=== PATIENT | female | born 1995 | race Hispanic/Latino ===

== ENCOUNTER 2021-08-28 03:47 | Emergency (ER) | payer OTHER ==
--- OUTSIDE RECORDS SUMMARY | 2021-08-28 03:51 | XMS REPORT | Continuity of Care Document ---
:1995 Author Organization [facility] t Address [address] [place] [address] Care Team Providers Name Role Phone Piotr Crouch Attending Clinician Unavailable Dinesh Juarez Attending Clinician Unavailable Nilton Holley Admitting Clinician Unavailable Smiley Admitting Clinician Unavailable Payers Payer Name Policy Type Policy Number Effective Date Expiration Date S ource Problems This patient has no known problems. Allergies, Adverse Reactions, Alerts Allergy Allergy Status Severity Reaction(s) Onset Inactive Treating Comm ents Source Name Type Date Date Clinician No Known DA Active U [facility] Allerg 06-02 [facility] ([place], [place]) [facility] No Known DA Active U 2017-0 [facility] Allerg 06-02 [facility] Medications This patient has no known medications. Procedures Procedure Date / Time Performed Performing Clinician Valentina aguilar [id number] 2020-04-29 00:00:00 BALCA.01 [facility] [id number] 2020-04-29 00:00:00 BALCA.01 [facility] Encounters Start End Encounter Admission Attending Care Care Encounter Source Date/Time Date/Time Type Type Clinicians Facility Department ID 2020-11-16 Inpatient EWA Padgett [id number] [facility] 14:15:00 Piotr [id number] [facility] 2020-04-29 Inpatient MARILOU Juarez HCARG LD [id number] [facility] 21:55:00 [facility] [id number] [facility] 2020-04-28 Inpatient MARILOU Juarez [facility] LD [id number] [facility] 17:36:00 Dinesh [id number] [facility] 2020-04-26 Inpatient HCARG MACIE [id number] [facility] 00:04:00 [id number] [facility] Results Test Description Test Time Test Comments Results Result Comments Source SURGICAL 2020-11-18 13:12:00 Test Item Value Reference Range Interpretation Comme nts SURGICAL RUN (test DATE: 11/18/20 [facility] LIVE PAGE 1 RUN code = TIME: 1312 Specimen Inquiry RUN USER: INTERFACE SURG) JIMI ENT: ALEA FREIRE LOC: H.OR U #: [id number] AGE/SX: 25/F ROOM: RE11/16/20REG DR: Piotr Crouch Jr, MD : 95 BED : DIS: STATUS: DEP [facility] [place] [facility] TLOC: SPEC #: [id number] R ROUTER SETTER: 11/17/20 STATUS: JACOB GALINDO #: [id number] SOFIA: - SUBM DR: Piotr Crouch Jr, MD ENTERED: 11/17/20 SP TYPE: SPRAGUE RGICAL OTHR DR: Lamin Holley MD ORDERED: SURG/PATH GROSS GROSS DESCRIPTION: The specimen is received in formalin in a container labeled "ALEA FREIRE - GALLBLADDER". The specimen c onsists of a resected gallbladder measuring 6 x 2 x 1.5 cm. The serosa is yoon and shiny. Th e specimen is opened. The lumen contains scanty green bile and several lobulated yellowish stones with an average diameter of 0.2 cm. The mucosa is green-yellowish and velvety. Knockdown Man sections are submitted in one cassette. CODES: [id number] - GALLBLADDER,NOS KEYPUNCH OPERATOR IES TO: Piotr Crouch Jr, MD [address], [place] [id number] Lamin Rivera MD [address] [facility] [address] [place] [address] PROCEDURES: SURG/PATH GROSS (10/27 01/13-131) TISSUES: GALLBLADDER,NOS - GALLBLADDE R Surgery information Surgery date 11/16/20 Surgeon(s): PIOTR CROUCH Pre-Op Dx: CHOLECYSTITIS Post-Op Dx: SAME Signed SIGNATURE ON FILE Gerry Moreno 11/18/20 1312 END OF REPORT [id number] 13:12:00 Test Item Value Reference Range Interpretation Comments SURGICAL (test code = SURG) RUN DATE: 11/18/20 [facility] LIVE PAGE 1 RUN TIME: 1312 Specimen Inquiry RUN USER: INTERFACE PATIENT: ALEA FREIRE LOC: H.OR U #: [id number] AGE/SX: 25/F ROOM: RE11/16/20[facility] DR: Piotr Crouch Jr, MD : 95 BED: DIS: STATUS: GULSHAN [facility] [place] [facility] TLOC: SPEC #: [id number] RECD: 11/17/20 STATUS: JACOB GALINDO #: [id number] SOFIA: 11/16/20- SUBM DR: Piotr Crouch Jr, MD ENTERED: 11/17/20 SP TYPE: SURGICAL OTHR DR: Lamin Holley MD ORDERED: SURG/PATH GROSS GROSS DESCRIPTION: The specimen is received in formalin in a container labeled "ALEA FREIRE - GALLBLADDER". The specimen consists of a resected gallbladder measuring 6 x 2 x 1.5 cm. The serosa is yoon and shiny. The specimen is opened. The lumen contains scanty green bile and several lobulated yellowish stones with an average diameter of 0.2 cm. The mucosa is green-yellowish and velvety. Knockdown Man sections are submitted in one cassette. CODES: [id number] - GALLBLADDER,NOS COPIES TO: Piotr Crouch Jr, MD [address] [place] [address] Lamin Holley MD [address] [facility] [address] [place] [address] PROCEDURES: SURG/PATH GROSS (11/18/20-1309) TISSUES: GALLBLADDER,NOS - GALLBLADDER Surgery information Surgery date 11/16/20 Surgeon(s): PIOTR CROUCH Pre-Op Dx: CHOLECYSTITIS Post-Op Dx: SAME Signed SIGNATURE ON FILE Gerry Moreno A 11/18/20 1312 END OF REPORT COVID 19 Asymptomatic IH [id number] 15:16:00 Test Item Value Reference Interpretation Comments Range COVID 19 Presumed NEGATIVE Asymptomatic IH AG Negative SHADY COV ID-19 (test code = COVNONPUIAG) Results are for the identification of QXSI-UcK-8yvjyr ocapsid protein antigen . Antigen is generallydet ectable in upper respir atory specimens durin g the acutephase of i nfection. Positive result s indicate the pr esenceof viral antigens, but clinical correl ation with patienthis tory and other diagnosti c information is necessary todetermine inf ection status. Negativ e results should be treat ed as presumptive and confirmed with a molecula r assay, if necessary fo r patientmanageme nt. Negative result s do not rule out COVID- 19 andshould not b e used as the sole basis for treatment orpat ient management deci sions, including infec tion controldecision s. Negative result s should be considered i n thecontext of a patient's recen t exposures, hist ory and thepresence of clinical signs and sympt oms consistent with COVID-19. The Shady SARS Antigen MEI is only for use under the Fooda nd Drug Administration' s Emergency Use Authorization. COMPREHENSIVE METABOLIC [id number] 15:45:00 Test Item Value Reference Range Interpretation Comments SODIUM (test code = 135 mmol/L 136-145 L NA) POTASSIUM (test code = 3.7 mmol/L 3.5-5.1 N K) CHLORIDE (test code = 104 mmol/L 98-107 N CL) CARBON DIOXIDE (test 28 mmol/L 21-32 N code = CO2) GLUCOSE (test code = 81 mg/dL 70-100 N GLU) BLOOD UREA NITROGEN 12 mg/dL 7-18 N (test code = BUN) GLOMERULAR FILTRATION > 60.00 See_Comment Report ing units: RATE (test code = GFR) mL/mi n/1.73m\\S\\2 (Modified MDRD formula)REFEREN CE RANGE: > or = 6 0 ml/min/1.73M2IF PATIENT IS -GIULIA N, MULTIPLY REPORT ED RESULT BY1.21. [Automated mess age] The system The [employer] generated this result transmitted ref erence range: >=60. Th e reference range was not used to int erpret this result as normal/abnormal . CREATININE (test code 0.55 mg/dL 0.51-0.95 N = CREAT) TOTAL PROTEIN (test 8.2 g/dl 6.4-8.2 N code = PROT) ALBUMIN (test code = 4.2 g/dl 3.4-5.0 N ALB) CALCIUM (test code = 9.5 mg/dL 8.5-10.1 N CA) BILIRUBIN TOTAL (test 0.5 mg/dl 0.2-1.0 N code = BILT) SGOT/AST (test code = 18 U/L 15-37 N AST) SGPT/ALT (test code = 34 U/L 12-78 N ALT) ALKALINE PHOSPHATASE 59 U/L 50-136 N TOTAL (test code = ALKP) HCG [id number] 15:45:00 Test Item Value Reference Range Interpretation Comments HCG SERUM (test 1 mIU/ml 0-6 N Values for B -hCG generally code = HCG) peak during the first trimesterand de connor slowly throughout the remainder of thepregnancy. A sharply reduced or fall ing serum B-hCG levelmay indicate an abnormal pregna ncy, and additonal clini calevaluation and follow-up m ay be appropriate. H CG rangesduring no rmal , as r eported in the literature, are summarized below.......... .............. ............... .............. ........Approxi mate hCG A pproximate GestationalRang e mIU/mL[IU/L] Age ---- ------5 - 50 0.2 - 1 Week50 - 500 1 - 2 Snmlx775 - 5000 2 - 3 Vmthf342 - 10,000 3 - 4 Weeks10 00 - 50,000 4 - 5 Weeks10,000 - 100,000 5 - 6 Weeks15,000 - 200,000 6 - 8 Weeks10,000 - 100,000 2 - 3 Months COMPREHENSIVE METABOLIC [id number] 15:43:00 Test Item Value Reference Range Interpretation Comments SODIUM (test code = 135 mmol/L 136-145 L NA) POTASSIUM (test code = 3.7 mmol/L 3.5-5.1 N K) CHLORIDE (test code = 104 mmol/L 98-107 N CL) CARBON DIOXIDE (test 28 mmol/L 21-32 N code = CO2) GLUCOSE (test code = 81 mg/dL 70-100 N GLU) BLOOD UREA NITROGEN 12 mg/dL 7-18 N (test code = BUN) GLOMERULAR FILTRATION > 60.00 See_Comment Report ing units: RATE (test code = GFR) mL/mi n/1.73m\\S\\2 (Modified MDRD formula)REFEREN CE RANGE: > or = 6 0 ml/min/1.73M2IF PATIENT IS -GIULIA N, MULTIPLY REPORT ED RESULT BY1.21. [Automated mess age] The system The [employer] generated this result transmitted ref erence range: >=60. Th e reference range was not used to int erpret this result as normal/abnormal . CREATININE (test code 0.55 mg/dL 0.51-0.95 N = CREAT) TOTAL PROTEIN (test 8.2 g/dl 6.4-8.2 N code = PROT) ALBUMIN (test code = 4.2 g/dl 3.4-5.0 N ALB) CALCIUM (test code = 9.5 mg/dL 8.5-10.1 N CA) BILIRUBIN TOTAL (test 0.5 mg/dl 0.2-1.0 N code = BILT) SGOT/AST (test code = 18 U/L 15-37 N AST) SGPT/ALT (test code = 34 U/L 12-78 N ALT) ALKALINE PHOSPHATASE 59 U/L 50-136 N TOTAL (test code = ALKP) HCG [id number] 15:43:00 Test Item Value Reference Range Interpretation Comments HCG SERUM (test code = HCG) mIU/ml 0-6 COMPREHENSIVE METABOLIC [id number] 15:42:00 Test Item Value Reference Range Interpretation Comments SODIUM (test code = 135 mmol/L 136-145 L NA) POTASSIUM (test code = 3.7 mmol/L 3.5-5.1 N K) CHLORIDE (test code = 104 mmol/L 98-107 N CL) CARBON DIOXIDE (test 28 mmol/L 21-32 N code = CO2) GLUCOSE (test code = 81 mg/dL 70-100 N GLU) BLOOD UREA NITROGEN 12 mg/dL 7-18 N (test code = BUN) GLOMERULAR FILTRATION > 60.00 See_Comment Report ing units: RATE (test code = GFR) mL/mi n/1.73m\\S\\2 (Modified MDRD formula)REFEREN CE RANGE: > or = 6 0 ml/min/1.73M2IF PATIENT IS -GIULIA N, MULTIPLY REPORT ED RESULT BY10.15. [Automated mess age] The system The [employer] generated this result transmitted ref erence range: >=60. Th e reference range was not used to int erpret this result as normal/abnormal . CREATININE (test code 0.55 mg/dL 0.51-0.95 N = CREAT) TOTAL PROTEIN (test 8.2 g/dl 6.4-8.2 N code = PROT) ALBUMIN (test code = 4.2 g/dl 3.4-5.0 N ALB) CALCIUM (test code = 9.5 mg/dL 8.5-10.1 N CA) BILIRUBIN TOTAL (test 0.5 mg/dl 0.2-1.0 N code = BILT) SGOT/AST (test code = 18 U/L 15-37 N AST) SGPT/ALT (test code = 34 U/L 12-78 N ALT) ALKALINE PHOSPHATASE U/L 50-136 TOTAL (test code = ALKP) HCG [id number] 15:42:00 Test Item Value Reference Range Interpretation Comments HCG SERUM (test code = HCG) mIU/ml 0-6 COMPREHENSIVE METABOLIC [id number] 15:40:00 Test Item Value Reference Range Interpretation Comments SODIUM (test code = 135 mmol/L 136-145 L NA) POTASSIUM (test code = 3.7 mmol/L 3.5-5.1 N K) CHLORIDE (test code = 104 mmol/L 98-107 N CL) CARBON DIOXIDE (test 28 mmol/L 21-32 N code = CO2) GLUCOSE (test code = 81 mg/dL 70-100 N GLU) BLOOD UREA NITROGEN 12 mg/dL 7-18 N (test code = BUN) GLOMERULAR FILTRATION > 60.00 See_Comment Report ing units: RATE (test code = GFR) mL/mi n/1.73m\\S\\2 (Modified MDRD formula)REFEREN CE RANGE: > or = 6 0 ml/min/1.73M2IF PATIENT IS -GIULIA N, MULTIPLY REPORT ED RESULT BY1.21. [Automated mess age] The system The [employer] generated this result transmitted ref erence range: >=60. Th e reference range was not used to int erpret this result as normal/abnormal . CREATININE (test code 0.55 mg/dL 0.51-0.95 N = CREAT) TOTAL PROTEIN (test g/dl 6.4-8.2 code = PROT) ALBUMIN (test code = 4.2 g/dl 3.4-5.0 N ALB) CALCIUM (test code = 9.5 mg/dL 8.5-10.1 N CA) BILIRUBIN TOTAL (test mg/dl 0.2-1.0 code = BILT) SGOT/AST (test code = 18 U/L 15-37 N AST) SGPT/ALT (test code = 34 U/L 12-78 N ALT) ALKALINE PHOSPHATASE U/L 50-136 TOTAL (test code = ALKP) HCG [id number] 15:40:00 Test Item Value Reference Range Interpretation Comments HCG SERUM (test code = HCG) mIU/ml 0-6 COMPREHENSIVE METABOLIC [id number] 15:38:00 Test Item Value Reference Range Interpretation Comments SODIUM (test code = 135 mmol/L 136-145 L NA) POTASSIUM (test code = 3.7 mmol/L 3.5-5.1 N K) CHLORIDE (test code = 104 mmol/L 98-107 N CL) CARBON DIOXIDE (test 28 mmol/L 21-32 N code = CO2) GLUCOSE (test code = 81 mg/dL 70-100 N GLU) BLOOD UREA NITROGEN 12 mg/dL 7-18 N (test code = BUN) GLOMERULAR FILTRATION See_Comment [Auto mated message] RATE (test code = GFR) The s ystem which generated this result transmitted ref erence range: >=60. Th e reference range was not used to int erpret this result as normal/abnormal . CREATININE (test code mg/dL 0.51-0.95 = CREAT) TOTAL PROTEIN (test g/dl 6.4-8.2 code = PROT) ALBUMIN (test code = 4.2 g/dl 3.4-5.0 N ALB) CALCIUM (test code = 9.5 mg/dL 8.5-10.1 N CA) BILIRUBIN TOTAL (test mg/dl 0.2-1.0 code = BILT) SGOT/AST (test code = U/L 15-37 AST) SGPT/ALT (test code = U/L 12-78 ALT) ALKALINE PHOSPHATASE U/L 50-136 TOTAL (test code = ALKP) HCG [id number] 15:38:00 Test Item Value Reference Range Interpretation Comments HCG SERUM (test code = HCG) mIU/ml 0-6 HCG [id number] 15:37:00 Test Item Value Reference Range Interpretation Comments HCG SERUM (test code = HCG) mIU/ml 0-6 COMPREHENSIVE METABOLIC [id number] 15:37:00 Test Item Value Reference Range Interpretation Comments SODIUM (test code = 135 mmol/L 136-145 L NA) POTASSIUM (test code = 3.7 mmol/L 3.5-5.1 N K) CHLORIDE (test code = 104 mmol/L 98-107 N CL) CARBON DIOXIDE (test mmol/L 21-32 code = CO2) GLUCOSE (test code = 81 mg/dL 70-100 N GLU) BLOOD UREA NITROGEN mg/dL 7-18 (test code = BUN) GLOMERULAR FILTRATION See_Comment [Auto mated message] RATE (test code = GFR) The s ystem which generated this result transmitted ref erence range: >=60. Th e reference range was not used to int erpret this result as normal/abnormal . CREATININE (test code mg/dL 0.51-0.95 = CREAT) TOTAL PROTEIN (test g/dl 6.4-8.2 code = PROT) ALBUMIN (test code = g/dl 3.4-5.0 ALB) CALCIUM (test code = 9.5 mg/dL 8.5-10.1 N CA) BILIRUBIN TOTAL (test mg/dl 0.2-1.0 code = BILT) SGOT/AST (test code = U/L 15-37 AST) SGPT/ALT (test code = U/L 12-78 ALT) ALKALINE PHOSPHATASE U/L 50-136 TOTAL (test code = ALKP) COMPREHENSIVE METABOLIC [id number] 15:33:00 Test Item Value Reference Range Interpretation Comments SODIUM (test code = 135 mmol/L 136-145 L NA) POTASSIUM (test code = 3.7 mmol/L 3.5-5.1 N K) CHLORIDE (test code = 104 mmol/L 98-107 N CL) CARBON DIOXIDE (test mmol/L 21-32 code = CO2) GLUCOSE (test code = mg/dL 70-100 GLU) BLOOD UREA NITROGEN mg/dL 7-18 (test code = BUN) GLOMERULAR FILTRATION See_Comment [Auto mated message] RATE (test code = GFR) The s ystem which generated this result transmitted ref erence range: >=60. Th e reference range was not used to int erpret this result as normal/abnormal . CREATININE (test code mg/dL 0.51-0.95 = CREAT) TOTAL PROTEIN (test g/dl 6.4-8.2 code = PROT) ALBUMIN (test code = g/dl 3.4-5.0 ALB) CALCIUM (test code = mg/dL 8.5-10.1 CA) BILIRUBIN TOTAL (test mg/dl 0.2-1.0 code = BILT) SGOT/AST (test code = U/L 15-37 AST) SGPT/ALT (test code = U/L 12-78 ALT) ALKALINE PHOSPHATASE U/L 50-136 TOTAL (test code = ALKP) HCG [id number] 15:33:00 Test Item Value Reference Range Interpretation Comments HCG SERUM (test code = HCG) mIU/ml 0-6 CBC W/AUTO [id number] 15:28:00 Test Item Value Reference Range Interpretation Comments WHITE BLOOD CELL (test code = 7.1 X10(3) 4.5-11.0 N WBC) RED BLOOD CELL (test code = 4.72 X10(6) 4.2-5.4 N RBC) HEMOGLOBIN (test code = HGB) 13.1 g/dL 12.5-16.0 N HEMATOCRIT (test code = HCT) 41.0 % 37.0-47.0 N MEAN CELL VOLUME (test code = 86.9 fl 78-100 N MCV) MEAN CELL HGB (test code = MCH) 27.8 pg 26.0-34.0 N MEAN CELL HGB CONCETRATION 32.0 g/dl 30.0-37.0 N (test code = MCHC) RED CELL DISTRIBUTION WIDTH 12.6 % 11.5-14.5 N (test code = RDW) PLATELET COUNT (test code = 349 X10(3) 150-350 N PLT) MEAN PLATELET VOLUME (test code 10.4 fl 8.7-11.4 N = MPV) NEUTROPHIL % (test code = NT%) 59.7 % 36.0-66.0 N IMMATURE GRANULOCYTE % (test 0.3 % 0.0-2.0 N code = IG%) LYMPHOCYTE % (test code = LY%) 30.9 % 16.0-50.0 N MONOCYTE % (test code = MO%) 7.7 % 0.0-13.0 N EOSINOPHIL % (test code = EO%) 1.1 % 0.0-4.5 N BASOPHIL % (test code = BA%) 0.3 % 0.0-1.5 N NUCLEATED RBC % (test code = 0.0 % 0-0.2 N NRBC%) NEUTROPHIL # (test code = NT#) 4.21 X10(3) 1.70-7.70 N IMMATURE GRANULOCYTE # (test 0.02 X10(3)uL 0.00-0.03 N code = IG#) LYMPHOCYTE # (test code = LY#) 2.18 X10(3) 0.70-4.00 N MONOCYTE # (test code = MO#) 0.54 X10(3) 0.00-0.89 N EOSINOPHIL # (test code = EO#) 0.08 X10(3) 0.00-0.60 N BASOPHIL # (test code = BA#) 0.02 X10(3) 0.00-0.20 N NUCLEATED RBC # (test code = 0.00 K/mm3 0.0-0.1 N NRBC#) AG HEPATITIS B [id number] 08:32:00 Test Item Value Reference Range Interpretation Comments AG HEPATITIS B SURFACE NONREAC NONREAC The r esults were (test code = HBSAG) obtained using the [employer] XP HBsA g assay. AB [id number] 08:32:00 Test Item Value Reference Range Interpretation Comments AB TREPONEMA (test NONREACTIVE NONREACTIVE Treponema l screening code = TREPAB) for Syphilis------- ------ ----- HIV 1 2 COMBO AG/AB [id number] 08:32:00 Test Item Value Reference Range Interpretation Comments HIV 1 2 COMBO AG/AB NON REACT NON REACT A Non-r eactive result SCREEN (test code = does not exclude the [id number]) possibility joshua xposure to or infection wi th HIV. HIV antibodies and/or i22velegfy may be undetectable in some stages of the infectionand in some clinical condit ions.The results were ob tained using the Retro[employer] XP CHIV assay.For use i n the detection of HI V p24 antigen and ant ibodiesto HIV Type 1 and/ or HIV Type 2. AG HEPATITIS B [id number] 08:22:00 Test Item Value Reference Range Interpretation Comments AG HEPATITIS B SURFACE NONREAC NONREAC The r esults were (test code = HBSAG) obtained using the 5to1 XP HBsA g assay. AB [id number] 08:22:00 Test Item Value Reference Range Interpretation Comments AB TREPONEMA (test NONREACTIVE NONREACTIVE Treponema l screening code = TREPAB) for Syphilis------- ------ ----- HIV 1 2 COMBO AG/AB [id number] 08:22:00 Test Item Value Reference Range Interpretation Comments HIV 1 2 COMBO AG/AB SCREEN (test code = NON REACT [id number]) URINALYSIS W REFLEX [id number] 00:16:00 Test Item Value Reference Range Interpretation Comments UA COLOR (test code = COLU) YELLOW YELLOW UA APPEARANCE (test code = CLEAR CLEAR APPU) UA GLUCOSE DIPSTICK (test code NORMAL mg/dl NORMAL = DGLUU) UA BILIRUBIN DIPSTICK (test NEGATIVE mg/dl NEGATIVE code = BILU) UA KETONE DIPSTICK (test code NEGATIVE mg/dl NEGATIVE = KETU) UA SPECIFIC GRAVITY (test code 1.032 1.001-1.035 N = SGU) UA BLOOD DIPSTICK (test code = NEGATIVE /UL NEGATIVE LUZ MARINA) UA PH DIPSTICK (test code = 6.5 4.6-8.0 BOOKER) UA PROTEIN DIPSTICK (test code 30 mg/dl NEGATIVE A = PROU) UA UROBILINIOGEN DIPSTICK 2 mg/dl NORMAL (test code = URO) UA NITRITE DIPSTICK (test code NEGATIVE NEGATIVE = LEONOR) UA LEUKOCYTE ESTERASE DIPSTICK NEGATIVE /UL NEGATIVE (test code = LEUU) UA COMMENT (test code = COMU) RANDOM UA WBC (test code = WBCU) 0-2 #/hpf 0-5 UA RBC (test code = RBCU) 0-2 #/hpf 0-5 UA EPITHELIAL CELLS (test code 2+ /hpf NEG,FEW A = EPIU) UA BACTERIA (test code = BACU) FEW /hpf NEGATIVE A UA MUCUS (test code = MUCU) 4+ /hpf NEG,FEW A URINE SOURCE: RANDOM URINECBC W/AUTO [id number] 23:06:00 Test Item Value Reference Range Interpretation Comments WHITE BLOOD CELL (test code = 8.1 X10(3) 4.5-11.0 N WBC) RED BLOOD CELL (test code = 4.26 X10(6) 4.2-5.4 N RBC) HEMOGLOBIN (test code = HGB) 12.0 g/dL 12.5-16.0 L HEMATOCRIT (test code = HCT) 37.7 % 37.0-47.0 N MEAN CELL VOLUME (test code = 88.5 fl 78-100 N MCV) MEAN CELL HGB (test code = MCH) 28.2 pg 26.0-34.0 N MEAN CELL HGB CONCETRATION 31.8 g/dl 30.0-37.0 N (test code = MCHC) RED CELL DISTRIBUTION WIDTH 15.4 % 11.5-14.5 H (test code = RDW) PLATELET COUNT (test code = 219 X10(3) 150-350 N PLT) MEAN PLATELET VOLUME (test code 11.9 fl 8.7-11.4 H = MPV) NEUTROPHIL % (test code = NT%) 73.8 % 36.0-66.0 H IMMATURE GRANULOCYTE % (test 0.2 % 0.0-2.0 N code = IG%) LYMPHOCYTE % (test code = LY%) 19.6 % 16.0-50.0 N MONOCYTE % (test code = MO%) 5.7 % 0.0-13.0 N EOSINOPHIL % (test code = EO%) 0.5 % 0.0-4.5 N BASOPHIL % (test code = BA%) 0.2 % 0.0-1.5 N NUCLEATED RBC % (test code = 0.0 % 0-0.2 N NRBC%) NEUTROPHIL # (test code = NT#) 5.98 X10(3) 1.70-7.70 N IMMATURE GRANULOCYTE # (test 0.02 X10(3)uL 0.00-0.03 N code = IG#) LYMPHOCYTE # (test code = LY#) 1.59 X10(3) 0.70-4.00 N MONOCYTE # (test code = MO#) 0.46 X10(3) 0.00-0.89 N EOSINOPHIL # (test code = EO#) 0.04 X10(3) 0.00-0.60 N BASOPHIL # (test code = BA#) 0.02 X10(3) 0.00-0.20 N NUCLEATED RBC # (test code = 0.00 K/mm3 0.0-0.1 N NRBC#) CBC W/AUTO [id number] 23:06:00 Test Item Value Reference Range Interpretation Comments WHITE BLOOD CELL (test code = 8.1 X10(3) 4.5-11.0 N WBC) RED BLOOD CELL (test code = 4.26 X10(6) 4.2-5.4 N RBC) HEMOGLOBIN (test code = HGB) 12.0 g/dL 12.5-16.0 L HEMATOCRIT (test code = HCT) 37.7 % 37.0-47.0 N MEAN CELL VOLUME (test code = 88.5 fl 78-100 N MCV) MEAN CELL HGB (test code = MCH) 28.2 pg 26.0-34.0 N MEAN CELL HGB CONCETRATION 31.8 g/dl 30.0-37.0 N (test code = MCHC) RED CELL DISTRIBUTION WIDTH 15.4 % 11.5-14.5 H (test code = RDW) PLATELET COUNT (test code = 219 X10(3) 150-350 N PLT) MEAN PLATELET VOLUME (test code 11.9 fl 8.7-11.4 H = MPV) NEUTROPHIL % (test code = NT%) 73.8 % 36.0-66.0 H IMMATURE GRANULOCYTE % (test 0.2 % 0.0-2.0 N code = IG%) LYMPHOCYTE % (test code = LY%) 19.6 % 16.0-50.0 N MONOCYTE % (test code = MO%) 5.7 % 0.0-13.0 N EOSINOPHIL % (test code = EO%) 0.5 % 0.0-4.5 N BASOPHIL % (test code = BA%) 0.2 % 0.0-1.5 N NUCLEATED RBC % (test code = 0.0 % 0-0.2 N NRBC%) NEUTROPHIL # (test code = NT#) 5.98 X10(3) 1.70-7.70 N IMMATURE GRANULOCYTE # (test 0.02 X10(3)uL 0.00-0.03 N code = IG#) LYMPHOCYTE # (test code = LY#) 1.59 X10(3) 0.70-4.00 N MONOCYTE # (test code = MO#) 0.46 X10(3) 0.00-0.89 N EOSINOPHIL # (test code = EO#) 0.04 X10(3) 0.00-0.60 N BASOPHIL # (test code = BA#) 0.02 X10(3) 0.00-0.20 N NUCLEATED RBC # (test code = 0.00 K/mm3 0.0-0.1 N NRBC#) COVID 19 Asymptomatic IH [id number] 17:21:00 Test Item Value Reference Interpretation Comments Range COVID 19 Presumed NEGATIVE Asymptomatic IH AG Negative SHADY COV ID-19 (test code = COVNONPUIAG) Results are for the identification of [id number] ocapsid protein antigen . Antigen is generallydet ectable in upper respir atory specimens durin g the acutephase of i nfection. Positive result s indicate the pr esenceof viral antigens, but clinical correl ation with patienthis tory and other diagnosti c information is necessary todetermine inf ection status. Negativ e results should be treat ed as presumptive and confirmed with a molecula r assay, if necessary fo r patientmanageme nt. Negative result s do not rule out COVID- 19 andshould not b e used as the sole basis for treatment orpat ient management deci sions, including infec tion controldecision s. Negative result s should be considered i n thecontext of a patient's recen t exposures, hist ory and thepresence of clinical signs and sympt oms consistent with COVID-19. The Shady SARS Antigen MEI is only for use under the Fooda nd Drug Administration' s Emergency Use Authorization.
[2021-08-28] MEDS ORDERED: NA CHLORIDE 0.9% 1,000 ML ONE ×2 (04:10→04:43)
[2021-08-28 04:23] LABS: Urine Blood 2+ (Negative); Urine Glucose Negative (Negative); Urine Protein Negative (Negative); Urine Specific Gravity 1.025 (1.005-1.030)
[2021-08-28 04:36] LABS: Urine Specific Gravity/Preg 1.025 (1.005-1.030)
[2021-08-28 04:36] LABS: Absolute Lymphocytes (CBC) 0.3 K/uL (0.7-4.9); Basophils % 0.1 % (0-1.3); Hematocrit 43.3 % (36.0-45.0); Lymphocytes % 2.9 % (15.3-44.8); MPV 7.9 fL (7.6-11.3); RBC Red Blood Cell Count 5.12 M/uL (3.86-4.86)
[2021-08-28] MEDS ORDERED: ONDANSETRON 4 MG/2 ML VIAL ONE (04:42)
[2021-08-28] MEDS ORDERED: MORPHINE 2 MG/ML SYR ONE (04:42)
[2021-08-28 04:54] LABS: Bilirubin Direct 0.2 mg/dL (0-0.2); Bilirubin Total 0.7 mg/dL (0.2-1.0); Potassium 3.9 mmol/L (3.5-5.1); Protein, Total 8.8 g/dL (6.4-8.2)
[2021-08-28] MEDS ORDERED: CIPROFLOXACIN 400mg IV 400 MG/200 ML BAG IV ONE (04:54)
--- NOTE | 2021-08-28 06:15 | ER ---
Nurse's Notes [facility] Name: Domonique Reyna Age: 25 yrs Sex: Female : 1995 Arrival Date: 08/28/2021 Time: 03:53 Bed 6 Private MD: Diagnosis: Vomiting;Diarrhea, unspecified;Abdominal tenderness;UTI/ Urinary tract infection, site not specified;Noninfective gastroenteritis and colitis, unspecified-Proctitis Presentation: 08/28 04:04 Chief complaint: Patient states: she started vomiting and having diarrhea last night bb around midnight and is having abdominal pain and a headache. Coronavirus screen: diarrhea, headache, vomiting. Client presents with at least one sign or symptom that may indicate coronavirus-19. Standard/surgical mask placed on the client. Ebola Screen: No symptoms or risks identified at this time. Initial Sepsis Screen: Does the patient meet any 2 criteria? No. Patient's initial sepsis screen is negative. Does the patient have a suspected source of infection? No. Patient's initial sepsis screen is negative. Risk Assessment: Do you want to hurt yourself or someone else? Patient reports no desire to harm self or others. Onset of symptoms was August 28, 2021. 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 - Social history:: Smoking status: unknown. - Family history:: not pertinent. Screenin:30 Abuse screen: Denies threats or abuse. Nutritional screening: No deficits noted. as6 Tuberculosis screening: No symptoms or risk factors identified. Fall Risk None identified. Assessment: 04:13 General: Appears in no apparent distress. uncomfortable, Behavior is calm, cooperative. as6 Pain: Complains of pain in right lower quadrant and left lower quadrant Pain radiates to anterior aspect of right lateral abdomen. Neuro: Level of Consciousness is awake, alert, obeys commands, Oriented to person, place, time, situation. Neuro: Reports headache. Cardiovascular: Capillary refill < 3 seconds Patient's skin is warm and dry. Respiratory: Airway is patent Trachea midline Respiratory effort is even, unlabored, Respiratory pattern is regular, symmetrical. GI: Reports lower abdominal pain, diarrhea, nausea, vomiting. Derm: Skin is intact, is healthy with good turgor. Vital Signs: 04:04 BP 104 / 90; Pulse 121; Resp 18 S; Temp 99.5(O); Pulse Ox 95% on R/A; Weight 64.41 kg bb (R); Height 5 ft. 2 in. (157.48 cm) (R); Pain 5/10; 05:38 BP 109 / 59; Pulse 86; Resp 16 S; Pulse Ox 100% on R/A; as6 06:20 BP 109 / 72; Pulse 90; Resp 18 S; Pulse Ox 100% on R/A; as6 04:04 Body Mass Index 25.97 (64.41 kg, 157.48 cm) ED Course: 03:53 Patient arrived in ED. 03:59 Rogelio White, RN is Primary Nurse. as6 04:06 Triage completed. bb 04:06 Arm band placed on Patient placed in an exam room, on a stretcher, on pulse oximetry. bb Family accompanied patient. 04:29 Inserted saline lock: 18 gauge in left antecubital area, using aseptic technique. Blood as6 collected. 04:30 Bed in low position. Call light in reach. Side rails up X 1. Pulse ox on. NIBP on. as6 04:31 Juan Mendieta MD is Attending Physician. chris 05:26 CT Abd/Pelvis - IV Contrast Only In Process Unspecified. EDMS 06:18 Arpita Ybarra MD is Referral Physician. chris 06:30 No provider procedures requiring assistance completed. IV discontinued, intact, as6 bleeding controlled, No redness/swelling at site. Pressure dressing applied. Administered Medications: 04:29 Drug: NS 0.9% 1000 ml Route: IV; Rate: 1000 ml; Site: left antecubital; as6 06:28 Follow up: IV Status: Completed infusion; IV Intake: 1000ml as6 04:50 Drug: morphine 2 mg Route: IVP; Site: left antecubital; as6 06:28 Follow up: Response: No adverse reaction; RASS: Alert and Calm (0) as6 04:50 Drug: Zofran (Ondansetron) 4 mg Route: IVP; Site: left antecubital; as6 06:28 Follow up: Response: No adverse reaction as6 04:50 Drug: NS 0.9% 1000 ml Route: IV; Rate: 1 bolus; Site: left antecubital; as6 06:29 Follow up: Response: No adverse reaction; IV Status: Completed infusion; IV Intake: as6 1000ml 05:05 Drug: Cipro (ciprofloxacin) 400 mg Volume: 200 ml; Route: IVPB; Infused Over: 60 mins; as6 Site: left antecubital; 06:29 Follow up: Response: No adverse reaction; IV Status: Completed infusion; IV Intake: as6 200ml 06:21 Drug: Flagyl (metroNIDAZOLE) 500 mg Route: PO; as6 06:29 Follow up: Response: No adverse reaction as6 Intake: 06:28 IV: 1000ml; Total: 1000ml. as6 06:29 IV: 1000ml; Total: 2000ml. as6 06:29 IV: 200ml; Total: 2200ml. as6 Outcome: 06:15 Discharge ordered by MD. perez 06:30 Discharged to home ambulatory, with significant other. as6 06:30 Condition: stable 06:30 Discharge instructions given to patient, Instructed on discharge instructions, follow up and referral plans. medication usage, Demonstrated understanding of instructions, follow-up care, medications, Prescriptions given X 5 06:30 Patient left the ED. as6 Signatures: Dispatcher [employer] EDJuan Tracey MD MD cha Ballard, Brenda, Diana Hunter RN, Ashby, RN RN as6
--- NOTE | 2021-08-28 06:16 | EDPHYS ---
Physician Documentation [facility] Name: Domonique Reyna Age: 25 yrs Sex: Female : 1995 Arrival Date: 08/28/2021 Time: 03:53 Bed 6 Private MD: NAHID Physician Juan Mendieta HPI: 08/28 04:50 This 25 yrs old Female presents to ER via Ambulatory with complaints of hcris Nausea/Vomiting/Diarrhea. 04:50 The patient presents to the emergency department with nausea, vomiting, 6 times since chris the onset of symptoms, described as bilious. Onset: The symptoms/episode began/occurred yesterday. Possible causes: unknown. The symptoms are aggravated by movement. Associated signs and symptoms: The patient has no apparent associated signs or symptoms. Severity of symptoms: At their worst the symptoms were moderate in the emergency department the symptoms are unchanged. The patient has not experienced similar symptoms in the past. 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 - Social history:: Smoking status: unknown. - Family history:: not pertinent. ROS: 04:50 Constitutional: Negative for fever, chills, and weight loss, Eyes: Negative for injury, chris pain, redness, and discharge, ENT: Negative for injury, pain, and discharge, Neck: Negative for injury, pain, and swelling, Cardiovascular: Negative for chest pain, palpitations, and edema, Respiratory: Negative for shortness of breath, cough, wheezing, and pleuritic chest pain, Back: Negative for injury and pain, : Negative for injury, bleeding, discharge, and swelling, MS/Extremity: Negative for injury and deformity, Skin: Negative for injury, rash, and discoloration, Neuro: Negative for headache, weakness, numbness, tingling, and seizure, Psych: Negative for depression, anxiety, suicide ideation, homicidal ideation, and hallucinations, Allergy/Immunology: Negative for hives, rash, and allergies, Endocrine: Negative for neck swelling, polydipsia, polyuria, polyphagia, and marked weight changes, Hematologic/Lymphatic: Negative for swollen nodes, abnormal bleeding, and unusual bruising. 04:50 Abdomen/GI: Positive for abdominal pain, nausea and vomiting, diarrhea, of the right upper quadrant, left upper quadrant, right lower quadrant and left lower quadrant. Exam: 04:50 Constitutional: This is a well developed, well nourished patient who is awake, alert, chris and in no acute distress. Head/Face: Normocephalic, atraumatic. Eyes: Pupils equal round and reactive to light, extra-ocular motions intact. Lids and lashes normal. Conjunctiva and sclera are non-icteric and not injected. Cornea within normal limits. Periorbital areas with no swelling, redness, or edema. ENT: Nares patent. No nasal discharge, no septal abnormalities noted. Tympanic membranes are normal and external auditory canals are clear. Oropharynx with no redness, swelling, or masses, exudates, or evidence of obstruction, uvula midline. Mucous membranes moist. Neck: Trachea midline, no thyromegaly or masses palpated, and no cervical lymphadenopathy. Supple, full range of motion without nuchal rigidity, or vertebral point tenderness. No Meningismus. Chest/axilla: Normal chest wall appearance and motion. Nontender with no deformity. No lesions are appreciated. Cardiovascular: Regular rate and rhythm with a normal S1 and S2. No gallops, murmurs, or rubs. Normal PMI, no JVD. No pulse deficits. Respiratory: Lungs have equal breath sounds bilaterally, clear to auscultation and percussion. No rales, rhonchi or wheezes noted. No increased work of breathing, no retractions or nasal flaring. Back: No spinal tenderness. No costovertebral tenderness. Full range of motion. Female : Normal external genitalia. Skin: Warm, dry with normal turgor. Normal color with no rashes, no lesions, and no evidence of cellulitis. MS/ Extremity: Pulses equal, no cyanosis. Neurovascular intact. Full, normal range of motion. Neuro: Awake and alert, GCS 15, oriented to person, place, time, and situation. Cranial nerves II-XII grossly intact. Motor strength 5/5 in all extremities. Sensory grossly intact. Cerebellar exam normal. Normal gait. 04:50 Abdomen/GI: Inspection: abdomen appears normal, Bowel sounds: normal, Palpation: moderate abdominal tenderness, in all quadrants, Liver: no appreciated palpable abnormalities, Hernia: not appreciated. Vital Signs: 04:04 BP 104 / 90; Pulse 121; Resp 18 S; Temp 99.5(O); Pulse Ox 95% on R/A; Weight 64.41 kg bb (R); Height 5 ft. 2 in. (157.48 cm) (R); Pain 5/10; 05:38 BP 109 / 59; Pulse 86; Resp 16 S; Pulse Ox 100% on R/A; as6 06:20 BP 109 / 72; Pulse 90; Resp 18 S; Pulse Ox 100% on R/A; as6 04:04 Body Mass Index 25.97 (64.41 kg, 157.48 cm) MDM: 04:33 Patient medically screened. chris 04:53 Differential diagnosis: Nonspecific abd pain, gastritis, cholecystitis, pancreatitis, chris diverticulitis, viral gastroenteritis, gastroenteritis. Data reviewed: vital signs, nurses notes, lab test result(s), radiologic studies, CT scan. Data interpreted: quality assurance monitor body: rate is 121 beats/min, rhythm is regular, Pulse oximetry: on room air is 121 %. Counseling: I had a detailed discussion with the patient and/or guardian regarding: the historical points, exam findings, and any diagnostic results supporting the discharge/admit diagnosis, lab results, radiology results, the need for outpatient follow up, for definitive care, a family practitioner. 08/28 04:09 Order name: Basic Metabolic Panel 08/28 04:09 Order name: CBC with Diff 08/28 04:09 Order name: Hepatic Function 08/28 04:09 Order name: Lipase 08/28 04:10 Order name: Basic Metabolic Panel; Complete Time: 05:32 EDMS 08/28 04:10 Order name: CBC with Automated Diff; Complete Time: 04:47 EDMS 08/28 04:10 Order name: Liver (Hepatic) Function; Complete Time: 05:32 EDMS 08/28 04:10 Order name: Lipase; Complete Time: 05:32 EDMS 08/28 04:23 Order name: Urine Dipstick-Ancillary; Complete Time: 04:37 EDMS 08/28 04:26 Order name: Urine --Ancillary (enter results) 2 08/28 04:26 Order name: Urine --Ancillary; Complete Time: 04:37 EDMS 08/28 04:48 Order name: CT Abd/Pelvis - IV Contrast Only chris 08/28 04:09 Order name: IV Saline Lock; Complete Time: 04:29 bb 08/28 04:09 Order name: Labs collected and sent; Complete Time: 04:29 bb Administered Medications: 04:29 Drug: NS 0.9% 1000 ml Route: IV; Rate: 1000 ml; Site: left antecubital; as6 06:28 Follow up: IV Status: Completed infusion; IV Intake: 1000ml as6 04:50 Drug: morphine 2 mg Route: IVP; Site: left antecubital; as6 06:28 Follow up: Response: No adverse reaction; RASS: Alert and Calm (0) as6 04:50 Drug: Zofran (Ondansetron) 4 mg Route: IVP; Site: left antecubital; as6 06:28 Follow up: Response: No adverse reaction as6 04:50 Drug: NS 0.9% 1000 ml Route: IV; Rate: 1 bolus; Site: left antecubital; as6 06:29 Follow up: Response: No adverse reaction; IV Status: Completed infusion; IV Intake: as6 1000ml 05:05 Drug: Cipro (ciprofloxacin) 400 mg Volume: 200 ml; Route: IVPB; Infused Over: 60 mins; as6 Site: left antecubital; 06:29 Follow up: Response: No adverse reaction; IV Status: Completed infusion; IV Intake: as6 200ml 06:21 Drug: Flagyl (metroNIDAZOLE) 500 mg Route: PO; as6 06:29 Follow up: Response: No adverse reaction as6 Disposition Summary: 08/28/21 06:15 Discharge Ordered Location: Home chris Problem: new chris Symptoms: have improved chris Condition: Stable chris Diagnosis - Vomiting chris - Diarrhea, unspecified chris - Abdominal tenderness chris - UTI/ Urinary tract infection, site not specified chris - Noninfective gastroenteritis and colitis, unspecified - Proctitis(08/28/21 06:18) chris Followup: chris - With: Private Physician - When: 2 - 3 days - Reason: Recheck today's complaints, Continuance of care, Re-evaluation by your physician Followup: chris - With: Arpita Ybarra MD - When: 2 - 3 days - Reason: Recheck today's complaints, Re-evaluation by your physician Discharge Instructions: - Discharge Summary Sheet chris - Food Choices to Help Relieve Diarrhea, Adult chris - Diarrhea, Adult chris - Nausea and Vomiting, Adult chris - Urinary Tract Infection, Adult chris - Viral Gastroenteritis, Adult chris - Nausea and Vomiting, Adult, [id number] chris - Urinary Tract Infection, Adult, [id number] chris - Diarrhea, Adult, [id number] chris - Proctitis [facility] Forms: - Medication Reconciliation Form [facility] - Thank You Letter [facility] - Antibiotic Education [facility] - Prescription Opioid Use [facility] Prescriptions: - Pepcid 20 mg Oral Tablet - take 1 tablet by ORAL route every 12 hours for 7 days; 30 tablet; Refills: 0, [facility] Product Selection Permitted - Zofran 4 mg Oral Tablet - take 1 tablet by ORAL route every 12 hours As needed; 20 tablet; Refills: 0, [facility] Product Selection Permitted - Cipro 500 mg Oral Tablet - take 1 tablet by ORAL route every 12 hours for 5 days; 10 tablet; Refills: 0, [facility] Product Selection Permitted - Flagyl 500 mg Oral Tablet - take 1 tablet by ORAL route every 8 hours for 7 days; 21 tablet; Refills: 0, [facility] Product Selection Permitted - dicyclomine 20 mg Oral Tablet - take 1 tablet by ORAL route 4 times per day; 28 tablet; Refills: 0, Product [facility] Selection Permitted Signatures: Dispatcher [employer] Juan Mayen MD MD cha Ballard, Brenda, RN RN Rogelio Parrish RN RN as6 Corrections: (The following items were deleted from the chart) 06:18 06:15 Noninfective gastroenteritis and colitis, unspecified [facility]
[2021-08-28] MEDS ORDERED: metroNIDAZOLE 500 MG TABLET ONE (06:17)
[2021-08-28 06:40] VITALS: TEMP 99.5
[2021-08-28 06:41] VITALS: O2SAT 100
[2021-08-28 06:43] VITALS: BP 109/72
--- NOTE | 2021-08-29 11:21 | RAD REPORT ---
EXAM DESCRIPTION: CT - Abdomen Pelvis W Contrast - 08/28/2021 6:28 am CLINICAL HISTORY: The patient is 25 years years old, Female; ABD PAIN TECHNIQUE: Axial computed tomography images of the abdomen with intravenous contrast. Sagittal and coronal reformatted images were created and reviewed. This CT exam was performed using one or more of the following dose reduction techniques: automated exposure control, adjustment of the mA and/o r kV according to patient size, and/or use of iterative reconstruction technique. COMPARISON: No relevant prior studies available. FINDINGS: LUNG BASES: Unremarkable. No mass. No consolidation. No pleural effusions or pneumot horaces. HEART: The visualized heart and pericardium are normal. ABDOMEN: LIVER: There is site dilatation of the common hepatic duct up to 0.8 cm. The liver is normal in size and configuration and without focal defects with the exception of a small region of hypodensity adjacent to the falciform ligament, probably focal fatty infiltration. GALLBLADDER AND BILE DUCTS: The gallbladder is not identified and may be surgically absent although no surgical clips are noted in the gallbladder fossa. PANCREAS: Unremarkable. No ductal dilatation, inflammatory changes or mass. SPLEEN: Unremarkable. No splenomegaly or focal defects. ADRENALS: Unremarkable. No mass or calcification. KIDNEYS AND URETERS: There are no acute findings in the kidneys. There is no evidence of solid mass , hydronephrosis or radiopaque nonobstructive intrarenal calculi. STOMACH AND BOWEL: There is mural thickening in the duodenum and distal ileum up to 0.4 cm and 0.3 cm, respectively, as well as in portions of the distal descending colon, sigmoid colon and rectum. Th ere is also increased fluid in the small bowel also consistent with hypersecretion. Mural thickening in the distal rectum with adjacent reticulation is also concerning for severe procti tis. The stomach is distended with fluid. Fluid-filled colon and rectum also suggest hypersecretion or poo r colonic water resorption as may occur with nonspecific gastroenteritis/enteritis and/or colitis. PELVIS: APPENDIX: The appendix is not identified with surgical clips along the tip of the cecum suggesting previous appendectomy. BLADDER: Unremarkable, allowing for the degree of distention. There is no evidence of cystolithiasi s or bladder mass. REPRODUCTIVE: The uterus and adnexa are unremarkable. ABDOMEN and PELVIS: INTRAPERITONEAL SPACE: There is no evidence of free air. BONES/JOINTS: There is no evidence of acute fracture, osseous destruction or osteoblastic changes. There is a slight levoconvex lumbar curve. Mild primary osteoarthritis in the hip joints bilaterally with acetabular marginal osteophytosis and symmetric mild to moderate joint space loss. SOFT TISSUES: Unremarkable. VASCULATURE: Unremarkable. No abdominal aortic aneurysm. LYMPH NODES: Unremarkable. There is no evidence of mesenteric, retroperitoneal, pelvic or inguin al adenopathy. IMPRESSION: 1. Nonspecific gastroenteritis/enteritis and colitis. 2. Mural thickening in the distal rectum with adjacent reticulation is also concerning for severe p roctitis. 3. The gallbladder is not identified and may be surgically absent although no surgical clips are no tino in the gallbladder fossa. Correlate with surgical history. 4. Extrahepatic biliary ductal dilatation may reflect expected sequela of cholecystectomy with a bi liary reservoir effect. A distal common bile duct obstruction, as may occur with choledocholithiasis or benign or malignant stricture, is a less likely consideration but warrants correlation with liver function tests and MRCP or ERCP if indicated. Electronically signed by: Linsey Barraza MD 08/28/2021 5:56 AM ANESTHESIOLOGY TECHNOLOGIST Due to temporary technical issues with the PACS/Fluency reporting system, reports are being signed by the in house radiologists without review as a courtesy to insure prompt reporting. The interpreting radiologist is fully responsible for the content of the report.
== END 2021-08-28 06:30 | disposition home or self-care (01) ==
LOC: ER 03:47
DX: N39.0 Urinary tract infection, site not specified (principal); K52.9 Noninfective gastroenteritis and colitis, unspecified; K62.89 Other specified diseases of anus and rectum
CPT/HCPCS: 96365; 96361; 85025; 80048; 36415; 81025; 80076; 81003; 83690; 74177; 96375; 99284; Q9967; J2270; J7030 ×2; J2405; J0744

== ENCOUNTER 2022-02-07 15:58 | Emergency (ER) | payer OTHER ==
--- OUTSIDE RECORDS SUMMARY | 2022-02-07 16:02 | XMS REPORT | Continuity of Care Document ---
:1995 Author Organization [facility] t Address [address] [place] [address] Care Team Providers Name Role Phone Piotr [...] Date Clinician No Known DA Active U 2017-0 [facility] Allerg 06-02 [facility] No Known DA Active U 2017-0 [facility] Allerg 06-02 [facility] Medications This patient has no known medications. Procedures Procedure Date / Time Performed Performing Clinician Valentina aguilar [id number] 2020-04-29 00:00:[address] [facility] [id number] 2020-04-29 00:00:[address] [facility] Encounters Start End Encounter Admission Attending Care Care Encounter Source Date/Time Date/Time Type Type Clinicians Facility Department ID 2020-11-16 Inpatient EWA Padgett [id number] [facility] 14:15:[id number] [facility] 2020-04-29 Inpatient MARILOU Juarez HCARG LD [id number] [facility] 21:55:00 [facility] [id number] [facility] 2020-04-28 Inpatient MARILOU Juarez HCARG LD [id number] [facility] 17:36:00 Dinesh [id number] [facility] 2020-04-26 Inpatient HCARG MCAIE [id number] [facility] 00:04:[id number] [facility] Results Test Description Test Time Test Comments Results Result Comments Source SURGICAL 2020-11-18 13:12:00 Test Item Value Reference Range Interpretation Comme nts SURGICAL RUN (test DATE: 11/18/20 [facility] LAB LIVE PAGE 1 RUN code = TIME: 1312 Specimen Inquiry RUN USER: INTERFACE SURG) JIMI ENT: ALEA FREIRE LOC: H.OR U #: [id number] AGE/SX: 25/F ROOM: RE11/16/20REG DR: Piotr Crouch Jr, MD : 95 BED : DIS: STATUS: DEP [facility] TLOC: SPEC #: [id number] R TOOLROOM HELPER: 11/17/20 STATUS: JACOB GALINDO #: [id number] SOFIA: - SUBM DR: Piotr Crouch Jr, MD ENTERED: 11/17/20 SP TYPE: SPRAGUE RGICAL OT DR: Lamin Holley MD ORDERED: SURG/PATH GROSS [...] cm. The mucosa is green-yellowish and velvety. Physician'S Assistant sections are submitted in one cassette. CODES: [id number] - GALLBLADDER,NOS BUSINESS SYSTEMS CONSULTANT IES TO: Piotr Crouch Jr, MD [address] [place], [place] [address] Lamin Rivera MD [address] [facility] [address] [place] [address] PROCEDURES: SURG/PATH GROSS (10/27 01/13-1310) TISSUES: GALLBLADDER,NOS - GALLBLADDE R Surgery information Surgery date 11/16/20 Surgeon(s): PIOTR CROUCH Pre-Op Dx: CHOLECYSTITIS Post-Op Dx: SAME Signed SIGNATURE ON FILE Gerry Moreno 11/18/20 1312 END OF REPORT [id number] 13:12:00 Test Item Value Reference Range Interpretation Comments SURGICAL (test code = SURG) RUN DATE: 11/18/[address] [facility] LIVE PAGE 1 RUN TIME: 1312 Specimen Inquiry RUN USER: INTERFACE PATIENT: ALEA FREIRE LOC: H.OR U #: [id number] AGE/SX: 25/F ROOM: RE11/16/20[facility] DR: Piotr Crouch Jr, MD : 95 BED: DIS: STATUS: GULSHAN [facility] TLOC: SPEC #: [id number] RECD: 11/17/20 STATUS: JACOB GALINDO #: [id number] SOFIA: 11/16/20- SUBM DR: Piotr Crouch Jr, [...] cm. The mucosa is green-yellowish and velvety. Physician'S Assistant sections are submitted in one cassette. CODES: [id number] - GALLBLADDER,NOS COPIES TO: Piotr Crouch Jr, MD [address], [place] [id number] Lamin Holley MD [address] [facility] [address] [place] [address] PROCEDURES: SURG/PATH GROSS (11/18/20-1309) TISSUES: GALLBLADDER,NOS - GALLBLADDER Surgery information Surgery date 11/16/20 Surgeon(s): PIOTR CROUCH Pre-Op Dx: CHOLECYSTITIS Post-Op Dx: SAME Signed SIGNATURE ON FILE Gerry Moreno A 11/18/20 1312 END OF REPORT COVID 19 Asymptomatic IH [id number] 15:16:00 Test Item Value Reference Interpretation Comments Range COVID 19 Presumed NEGATIVE Asymptomatic IH AG Negative SHADY COV ID-19 (test code = COVNONPUIAG) Results are for the identification of ITMP-GiK-9fgsha ocapsid protein antigen . Antigen is generallydet [...] Administration' s Emergency Use Authorization. COMPREHENSIVE METABOLIC [id number] 15:45:00 Test Item Value Reference Range Interpretation [...] IS -GIULIA N, MULTIPLY REPORT ED RESULT BY121. [Automated mess age] The system whic h generated this result transmitted ref erence range: [...] N TOTAL (test code = ALKP) HCG [id number] 15:45:00 Test Item Value Reference Range Interpretation [...] 1 Week50 - 500 1 - 2 Elguw214 - 5000 2 - 3 Ehvgm837 - 10,000 3 - 4 Weeks10 00 - 50,000 4 - 5 Weeks10,000 - 100,000 5 - 6 Weeks15,000 - 200,000 6 - 8 Weeks10,000 - 100,000 2 - 3 Months COMPREHENSIVE METABOLIC [id number] 15:43:00 Test Item Value Reference Range Interpretation [...] RESULT BY1.21. [Automated mess age] The system [employer] generated this result transmitted ref erence range: [...] N TOTAL (test code = ALKP) HCG [id number] 15:43:00 Test Item Value Reference Range Interpretation Comments HCG SERUM (test code = HCG) mIU/ml 0-6 COMPREHENSIVE METABOLIC [id number] 15:42:00 Test Item Value Reference Range Interpretation [...] RESULT BY10.15. [Automated mess age] The system [employer] generated this result transmitted ref erence range: [...] 50-136 TOTAL (test code = ALKP) HCG [id number] 15:42:00 Test Item Value Reference Range Interpretation Comments HCG SERUM (test code = HCG) mIU/ml 0-6 COMPREHENSIVE METABOLIC [id number] 15:40:00 Test Item Value Reference Range Interpretation [...] RESULT BY1.21. [Automated mess age] The system [employer] generated this result transmitted ref erence range: [...] 50-136 TOTAL (test code = ALKP) HCG [id number] 15:40:00 Test Item Value Reference Range Interpretation Comments HCG SERUM (test code = HCG) mIU/ml 0-6 COMPREHENSIVE METABOLIC [id number] 15:38:00 Test Item Value Reference Range Interpretation [...] 50-136 TOTAL (test code = ALKP) HCG [id number] 15:38:00 Test Item Value Reference Range Interpretation Comments HCG SERUM (test code = HCG) mIU/ml 0-6 HCG [id number] 15:37:00 Test Item Value Reference Range Interpretation Comments HCG SERUM (test code = HCG) mIU/ml 0-6 COMPREHENSIVE METABOLIC [id number] 15:37:00 Test Item Value Reference Range Interpretation [...] TOTAL (test code = ALKP) COMPREHENSIVE METABOLIC [id number] 15:33:00 Test Item Value Reference Range Interpretation [...] 50-136 TOTAL (test code = ALKP) HCG [id number] 15:33:00 Test Item Value Reference Range Interpretation Comments HCG SERUM (test code = HCG) mIU/ml 0-6 CBC W/AUTO [id number] 15:28:00 Test Item Value Reference Range Interpretation [...] K/mm3 0.0-0.1 N NRBC#) AG HEPATITIS B [id number] 08:32:00 Test Item Value Reference Range Interpretation Comments AG HEPATITIS B SURFACE NONREAC NONREAC The r esults were (test code = HBSAG) obtained using the [employer] XP HBsA g assay. AB [id number] 08:32:00 Test Item Value Reference Range Interpretation Comments AB TREPONEMA (test NONREACTIVE NONREACTIVE Treponema l screening code = TREPAB) for Syphilis------- ------ ----- HIV 1 2 COMBO AG/AB [id number] 08:32:00 Test Item Value Reference Range Interpretation Comments HIV 1 2 COMBO AG/AB NON REACT NON REACT A Non-r eactive result SCREEN (test code = does not exclude the [id number]) possibility joshua xposure to or infection wi th HIV. HIV antibodies and/or e42zbdrfhe may be undetectable in some stages of the infectionand in some clinical condit ions.The results were ob tained using the [employer] XP CHIV assay.For use i n the detection of HI V p24 antigen and ant ibodiesto HIV Type 1 and/ or HIV Type 2. AG HEPATITIS B [id number] 08:22:00 Test Item Value Reference Range Interpretation Comments AG HEPATITIS B SURFACE NONREAC NONREAC The r esults were (test code = HBSAG) obtained using the [employer] XP HBsA g assay. AB [id number] 08:22:00 Test Item Value Reference Range Interpretation Comments AB TREPONEMA (test NONREACTIVE NONREACTIVE Treponema l screening code = TREPAB) for Syphilis------- ------ ----- HIV 1 2 COMBO AG/AB [id number] 08:22:00 Test Item Value Reference Range Interpretation Comments HIV 1 2 COMBO AG/AB SCREEN (test code = NON REACT [id number]) URINALYSIS W REFLEX [id number] 00:16:00 Test Item Value Reference Range Interpretation [...] NEG,FEW A URINE SOURCE: RANDOM URINECBC W/AUTO [id number] 23:06:00 Test Item Value Reference Range Interpretation [...] 0.00 K/mm3 0.0-0.1 N NRBC#) CBC W/AUTO [id number] 23:06:00 Test Item Value Reference Range Interpretation [...] 0.0-0.1 N NRBC#) COVID 19 Asymptomatic IH [id number] 17:21:00 Test Item Value Reference Interpretation Comments Range COVID 19 Presumed NEGATIVE Asymptomatic IH AG Negative SHADY COV ID-19 (test code = COVNONPUIAG) Results are for the identification of NWUH-YqO-2gmvll ocapsid protein antigen . Antigen is generallydet [...]
--- NOTE | 2022-02-07 18:43 | ER ---
Nurse's Notes [facility] Name: Domonique Reyna Age: 26 yrs Sex: Female : 1995 Arrival Date: 02/07/2022 Time: 16:00 Bed DIS4 Private MD: Diagnosis: Presentation: 02/07 16:11 Chief complaint: Patient states: Abdominal paiin nausea vomiting diarrhea began last ll1 PM. Coronavirus screen: Vaccine status: Patient reports receiving the 2nd dose of the covid vaccine. Client denies travel out of the [place] in the last 14 days. Ebola Screen: Patient negative for fever greater than or equal to 101.5 degrees Fahrenheit, and additional compatible Ebola Virus Disease symptoms. Risk Assessment: Do you want to hurt yourself or someone else? Patient reports no desire to harm self or others. Onset of symptoms was February 03, 2022. 16:11 Method Of Arrival: Ambulatory ll1 16:11 Acuity: ALONZO 3 ll1 16:17 Note Sitting VS 122/74 pulse 103 Standing 123/62 pulse 124. ll1 STRIP WINDER: 16:16 LMP 02/05/2022 ll1 Historical: - Allergies: 16:15 No Known Allergies; ll1 - Home Meds: 16:15 None [Active]; ll1 - PMHx: 16:15 None; ll1 - PSHx: 16:15 Appendectomy; Cholecystectomy; ll1 - Social history:: Smoking status: Patient denies any tobacco usage or history of. Vital Signs: 16:11 BP 122 / 74; Pulse 103; Resp 18; Temp 98.4; Pulse Ox 100% on R/A; Weight 67.59 kg; ll1 Height 5 ft. 2 in. (157.48 cm); Pain 8/10; 16:11 Body Mass Index 27.25 (67.59 kg, 157.48 cm) ll1 ED Course: 16:00 Patient arrived in ED. mr 16:15 Triage completed. ll1 18:18 Juan Arreola PA is PHCP. cp 18:18 Juan Mendieta MD is Attending Physician. cp Administered Medications: No medications were administered Outcome: 18:43 Patient left the ED. ll1 Signatures: Leonel Linsey mr Juan Arreola PA PA cp Kaden, Lynsay, RN RN ll1
[2022-02-07 18:51] VITALS: BP 122/74; TEMP 98.4; O2SAT 100
--- NOTE | 2022-02-08 18:43 | EDPHYS ---
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 Vital Signs: 16:11 BP 122 / 74; Pulse 103; Resp 18; Temp 98.4; Pulse Ox 100% on R/A; Weight 67.59 kg; ll1 Height 5 ft. 2 in. (157.48 cm); Pain 8/10; 16:11 Body Mass Index 27.25 (67.59 kg, 157.48 cm) ll1 MDM: 18:32 Patient medically screened. [facility] 18:35 ED course: Patient left ED prior to evaluation by provider. cp Administered Medications: No medications were administered Disposition Summary: 02/07/22 18:43 Eloped Disposition: post triage evaluation and consult ll1 Reason: unknown ll1 Signatures: Juan Mendieta MD MD cha Page, Corey, PA PA Glenn Cunningham, RN RN ll1
== END 2022-02-07 18:43 | disposition left against medical advice (07) ==
LOC: ER 15:58
DX: R10.9 Unspecified abdominal pain (principal); Z53.21 Procedure and treatment not carried out due to patient leaving prior to being seen by health care provider
CPT/HCPCS: 99281